=== PATIENT | female | born 1990 | race African-American/Black ===

== ENCOUNTER 2025-01-16 11:58 | Emergency (ER) | payer MEDICAID, OTHER ==
[~2025-01-16] VITALS: Ht 162.6 cm; Wt 122.0 kg
[2025-01-16 12:05] VITALS: O2SAT 97
[2025-01-16 13:46] LABS: CLARITY URINE TURBID (CLEAR); COLOR URINE ORANGE (YELLOW); GLUCOSE URINE NEGATIVE (NEGATIVE); KETONES URINE NEGATIVE (NEGATIVE); LEUKOCYTE ESTERASE URINE 3+ (NEGATIVE); NITRITE URINE POSITIVE (NEGATIVE); OCCULT BLOOD URINE 3+ (NEGATIVE); PH URINE 5.0 (4.5-8.0); PROTEIN URINE 4+ (NEGATIVE); SPECIFIC GRAVITY URINE 1.038 (1.005-1.030); UROBILINOGEN URINE 1.0 E.U./dL (0.2-1.0)
[2025-01-16 14:12] LABS: WBC URINE TNTC /hpf (0-2)
[2025-01-16 14:13] LABS: BACTERIA URINE 1+; RBC URINE 15-25 /hpf (0-2); SQUAMOUS EPITHELIAL CELL URINE 1+ /lpf (RARE/1+); YEAST URINE NONE SEEN
[2025-01-16] MEDS ORDERED: IBUP-2030 MT (14:28)
[2025-01-16] MEDS ORDERED: SULF1TAB48 MT (14:28)
[2025-01-16 14:54] VITALS: BP 131/77; PULSE 65; RESP 16; TEMP 36.9; O2SAT 100
== END 2025-01-16 14:55 | disposition home or self-care (01) ==
LOC: ER 11:58
DX: N39.0 Urinary tract infection, site not specified (principal); Z55.6 Problems related to health literacy; Z79.899 Other long term (current) drug therapy
CPT/HCPCS: 81003; 81025; 99283